=== PATIENT | male | born 1950 | race Caucasian/White ===

== ENCOUNTER → 2017-07-07 10:28 | Outpatient (CLI) | payer MEDICARE, MEDICAID, SELFPAY ==
--- NOTE | 2017-07-07 | XR_ITS ---
XR foot RT min 3V, XR foot LT min 3V Ordering Physician: Monserrat Mendiola DPM Patient Age: 66 years: Male HISTORY: ITS.REASON: PAIN..MASHED AND BROKE 10 YEARS AGO . HISTORY of diabetes type 2 with diabetic, neuropathy. TECHNIQUE: Right foot 3 views weightbearing Left foot 3 views weightbearing COMPARISON :Contralateral foot from today . RIGHT FOOT 3 views weightbearing Bones well mineralized. No erosive changes. Perhaps Trace degenerative changes at first MTP joint. Mild sclerosis also seen about the first tarsal-metatarsal joint with small subchondral cystic elements at the first cuneiform adjacent to this joint. Subtle but may reflect some early degenerative changes here. Prominent narrowed and sclerotic changes narrowed appearance right subtalar joint likely reflecting a pronounced degenerative changes here. Question slight loss of height along the inferior margin of the talus. The dome of talus appears intact. Is there history of old old trauma here.?. Clinical correlation required.. Mild pes planus developing I believe at the right foot more so than left. Mild soft tissue swelling right forefoot LEFT FOOT 3 views weightbearing Bones well mineralized. No erosive changes. Only Trace degenerative changes at first MTP joint. Question subtle sclerosis also seen about the first tarsal-metatarsal joint otherwise question some scant early degenerative changes here. Equivocal... There is a moderate size moderately thick plaque calcaneal spur at the left foot measuring up to 7.5-8 mm length. More adequate plantar arch in the left only. Only question scant soft tissue swelling towards left forefoot forefoot In contrast to the right lateral foot image, the left subtalar joint it appears more normal on the lateral view left foot. There may be some mild sclerosis along the superior margin of the calcaneus at the subtalar joint but the subtalar joint appears is visualized & intact on this lateral view. IMPRESSION: 1.Sclerotic markedly narrowed appearance RIGHT Subtalar Joint.. Reflecting arthritic changes here on right.. Noting history of diabetes possible neuropathic joint changes vs old trauma.. . In contrast the LEFT subtalar joint appears intact maintained on today's lateral foot view. Consider CT or MR to if require further detail right subtalar joint. 2. Suggestion Mild soft tissue swelling right foot more so than left . 3. Left plantar calcaneal spur. 4.. Mild the developing pes planus right foot
== END ==
PROVIDERS: Visit Provider Podiatrist
DX: M79.671 Pain in right foot (principal); M79.672 Pain in left foot
CPT/HCPCS: 73630

== ENCOUNTER → 2017-07-11 12:08 | Outpatient (POV) | payer MEDICARE, MEDICAID, SELFPAY | PROVIDERS: Visit Provider Podiatrist | DX: Z00.00 Encounter for general adult medical examination without abnormal findings (principal) ==

== ENCOUNTER → 2017-07-25 12:39 | Outpatient (POV) | payer MEDICARE, MEDICAID, SELFPAY | PROVIDERS: Visit Provider Podiatrist | DX: Z00.00 Encounter for general adult medical examination without abnormal findings (principal) ==

== ENCOUNTER → 2017-09-01 10:34 | Outpatient (POV) | payer MEDICARE, MEDICAID, SELFPAY | PROVIDERS: PCP Internal Medicine; Visit Provider Physician Assistant | DX: Z00.00 Encounter for general adult medical examination without abnormal findings (principal) ==

== ENCOUNTER → 2017-09-01 12:04 | Outpatient (CLI) | payer MEDICARE, MEDICAID, SELFPAY ==
--- NOTE | 2017-09-01 12:05 | XR_ITS ---
XR ankle wt bearing LT min 3V HISTORY: Ankle pain ORDERING PHYSICIAN: Monserrat Mendiola DPM PATIENT AGE: 66 years COMPARISON: None FINDINGS: Weightbearing views are performed No fracture or dislocation. No lytic or blastic change. There is normal mineralization.. The joint spaces are well-preserved. No significant degenerative/arthritic changes. No erosive changes evident. Mildly prominent calcaneal spur is noted with some fragmentation distally IMPRESSION: Calcaneal spur otherwise negative left ankle
--- NOTE | 2017-09-01 12:05 | XR_ITS ---
Right ankle: Weightbearing Ankle 3 views. HISTORY: Right ankle pain ORDERING PHYSICIAN: Monserrat Mendiola DPM PATIENT AGE: 66 years COMPARISON: None FINDINGS: No acute fracture or dislocation is evident. There are hypertrophic changes at the tip of the lateral malleolus with a well-circumscribed density at the tip the lateral malleolus and could be due to an old injury or ununited ossification center. Sclerosis once again noted involving the posterior subtalar joint. The ankle joint spaces are well-preserved. IMPRESSION: 1. Hypertrophic changes of the distal fibula. 2. 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
== END ==
PROVIDERS: Visit Provider Podiatrist
DX: M79.671 Pain in right foot (principal); M79.672 Pain in left foot; B35.1 Tinea unguium
CPT/HCPCS: 73610; 87102; 87206; 87220

== ENCOUNTER → 2018-01-05 14:42 | Outpatient (POV) | payer MEDICARE, MEDICAID, SELFPAY | PROVIDERS: Family Provider Internal Medicine; PCP Internal Medicine; Visit Provider Physician Assistant | DX: Z00.00 Encounter for general adult medical examination without abnormal findings (principal) ==

== ENCOUNTER 2019-01-12 12:49 | Observation (INO) ==
--- NOTE | 2019-01-12 13:54 | Procedure Note ---
[facility] Cardioversion Date: 01/12/19 Provider:: FLORINDA Perez Procedure Performed:: Synchronized electrical cardioversion Diagnosis:: Atrial fibrillation with a rapid ventricular response Procedure Summary:: Patient was brought to the cardiac Account Processor as an outpatient. After informed consent obtained, anesthesia was obtained using a combination of Versed and fentanyl IV. After the patient was adequately sedated, using his AICD, synchro nized cardioversion was attempted x3. Each attempt was 41 J. After each attempt patient maintained sinus rhythm for only a few seconds before reverting back to atrial fibrillation with a rapid ventricular response. After the third attempt, the procedure was aborted. Patient tolerated procedure without complications. Complications:: none Conculsion:: Unsuccessful electrical cardioversion
--- NOTE | 2019-01-12 14:12 | Consult Report ---
History of Present Illness Consult date: 01/12/19 Requesting physician: Andrea Bagley Consult reason: atrial fibrillation Chief complaint: A. fib with RVR Additional Medical History:: 1. Cardiac catheterization, 04/2017, normal coronary arteries with LVEF 45%, LVEDP 20 mm Hg and endothelial dysfunction 2. Severe COPD 3. Continue tobacco use 4. Obstructive sleep apnea 5. Hypertension A. Echocardiogram, 08/09/2016, normal LV dimension with LVEF of 40-45%. Mild concentric LVH. Unable to completely assess for regional wall motion as some segments are not well seen. Left atrial enlargement of 5.3 cm, mild MR, mild TR with mild aortic valve calcification with no regurgitation. Normal right atrial size. No significant pericardial effusion 6. Hyperlipidemia 7. History of paroxysmal atrial fibrillation with history of anticoagulation therapy stopped in 04/2015 at patient request A. Anticoagulation therapy restarted, 06/2016, for possible TIA B. Anticoagulation therapy stopped, 12/2016, for hematuria with referral to urology for evaluation. Patient did have a kidney stone with subsequent treatment and reinstitution of Eliquis therapy C. History of Tikosyn therapy, 2016 8. Mild carotid artery stenosis, 2016 9. History of anemia felt secondary to bleeding hemorrhoids on chronic anticoagulation therapy A. Status post hemorrhoidectomy with no recurrent bleeding/anemia, 2016 10. [employer] AICD implanted since at least 2012 with improved cardiomyopathy 11. Diabetes mellitus type 2 12. Hypothyroidism, on replacement therapy History of present illness: 68-year-old white male longtime patient of Dr. Butts was sent by his PCP in [place], [place] for further treatment of his symptomatic atrial fibrillation with a rapid ventricular response. Patient has a history of sinus rhythm on Tikosyn therapy along with Eliquis for anticoagulation. He was brought to the cardiac Assistant Professor Of German at [facility] with subsequent unsuccessful attempts at cardioversion without complication. Subsequently admitted for further treatment. [facility] History Medical History: Reports:: Atrial Fibrillation, Chronic Obstructive Pulmonary Disease (COPD), Diabetes Mellitus Type 2, Gastroesophageal Reflux Disease(GERD), Internal Pacemaker, Kidney Stones Denies:: Arrhythmia, Asthma, Cancer, Congestive Heart Failure, Coronary Artery Disease, Cerebrovascular Accident, Hyperlipidemia, Hypertension, Myocardial Infarction, Renal Disease, Renal Insufficiency *Have you ever received a pneumonia vaccine?: Yes *Have you received a flu vaccine this season?: No Other Medical History: Reports: Arthritis, Cataracts, Hypothyroidism, Sinus Problems Other Surgeries: Yes: Pacemaker, Sinus Surgery - *Social History Smoking Status: Current every day smoker Tobacco Type: cigarettes # Packs/Day (cigarettes): 1 Alcohol Intake: current Alcohol Intake Frequency:: 0-2 drinks per day Substance Use Type: denies use *Occupational Status:: retired *Travel in the last 8 weeks: Inside the [place] Family Hx:: Cancer, Diabetes, Heart Attack, Stroke, Hypertension Meds Home Medications Medication Instructions Recorded Confirmed Type fluticasone propionate 50 1 spray INTRANASAL DAILY 30 Days 07/07/17 01/12/19 History mcg/actuation nasal #16 spray,suspension escitalopram 20 mg tablet 10 mg PO DAILY tab 07/31/17 01/12/19 History metformin 500 mg tablet 500 mg PO DAILY tab 07/31/17 01/12/19 History albuterol sulfate 2.5 mg/3 mL 1.25 mg INHALATION QID #180 ml 04/02/18 01/12/19 Rx (0.083 %) solution for nebulization topiramate 50 mg tablet 50 mg PO BID 08/10/18 01/12/19 History Apixaban [Eliquis] 5 mg PO BID 01/12/19 01/12/19 History Dofetilide 125 mcg PO Q12H 01/12/19 01/12/19 History Dofetilide 250 mcg PO Q12H 01/12/19 01/12/19 History Gabapentin [Gabapentin 100mg Cap] 200 mg PO HS 01/12/19 01/12/19 History Levothyroxine Sodium [Synthroid 100 mcg PO DAILY 01/12/19 01/12/19 History 100mcg (0.1mg) tablet] dilTIAZem HCl [Diltiazem 240mg 240 mg PO BID 01/12/19 01/12/19 History 24Hr ER Cap] Allergies Allergy/AdvReac Type Severity Reaction Status Date / Time No Known Allergies Allergy Verified 08/10/18 14:23 Review of Systems - *Cardiovascular Reports shortness of breath with activity, Reports fast heart rate, Denies chest pain - *Respiratory Reports shortness of breath with activity - *Gastrointestinal Denies abdominal pain, Denies loose stools, Denies nausea, Denies vomiting - *Genitourinary Denies blood in urine - *Musculoskeletal Reports back pain, Denies joint pain - *Neurologic Denies headache(s), Denies fainting Exam Vital signs and Labs for Last 24 Hours: Pulse Resp BP Pulse Ox 131 H 16 109/84 L 95 01/12/19 13:45 01/12/19 13:45 01/12/19 13:45 01/12/19 13:45 I & O for Last 24 hours: Intake & Output 01/10/19 01/11/19 01/12/19 01/13/19 11:59 11:59 11:59 11:59 Weight 228 lb - *Routine HEENT Exam Head: Present: normocephalic Eye: Present: EOMI, PERRL ENT: Present: mucous membranes moist - *Routine Neck Exam Present: supple. Absent: JVD, carotid bruit - *Routine Respiratory Exam Present: CTA bilaterally. Absent: accessory muscle use, rales, rhonchi, wheezes - *Routine Cardiovascular Exam Present: tachycardia, irregularly irregular. Absent: murmur, gallop, rubs - *Routine Abdominal Exam Present: soft. Absent: tenderness, distended, guarding - *Routine Extremities Exam Absent: edema, calf tenderness - *Routine Neurological Exam Present: alert, oriented X3, moving all extremities Assessment and Plan (1) Paroxysmal atrial fibrillation with RVR Current visit: Yes Status: Acute Category: Medical Code(s): I48.0 - Paroxysmal atrial fibrillation (2) Visit for monitoring Tikosyn therapy Current visit: Yes Status: Acute Category: Medical Code(s): Z51.81 - Encounter for therapeutic drug level monitoring; Z79.899 - Other moth exterminator (current) drug therapy (3) Automatic implantable cardioverter-defibrillator in situ Current visit: No Status: Chronic Category: Medical Code(s): Z95.810 - Presence of automatic (implantable) cardiac defibrillator (4) COPD (chronic obstructive pulmonary disease) Current visit: No Status: Chronic Qualifiers: COPD type: emphysema Emphysema type: other Qualified Code(s): J43.8 - Other emphysema Category: Medical Code(s): J44.9 - Chronic obstructive pulmonary disease, unspecified (5) Carotid artery stenosis Current visit: No Status: Chronic Qualifiers: Laterality: bilateral Qualified Code(s): I65.23 - Occlusion and stenosis of bilateral carotid arteries Category: Medical Code(s): I65.29 - Occlusion and stenosis of unspecified carotid artery (6) HHD (hypertensive heart disease) Current visit: No Status: Chronic Qualifiers: Heart failure presence: with heart failure Heart failure type: systolic Heart failure chronicity: chronic Qualified Code(s): I11.0 - Hypertensive heart disease with heart failure; I50.22 - Chronic systolic (congestive) heart failure Category: Medical Code(s): I11.9 - Hypertensive heart disease without heart failure (7) HLD (hyperlipidemia) Current visit: No Status: Chronic Qualifiers: Hyperlipidemia type: other hyperlipidemia Qualified Code(s): E78.49 - Other hyperlipidemia; E78.4 - Other hyperlipidemia Category: Medical Code(s): E78.5 - Hyperlipidemia, unspecified (8) CANDI on CPAP Current visit: No Status: Chronic Category: Medical Code(s): G47.33 - Obstructive sleep apnea (adult) (pediatric); Z99.89 - Dependence on other enabling machines and devices (9) Obesity Current visit: No Status: Chronic Qualifiers: Obesity type: due to excess calories Obesity classification: adult class 2 (BMI 35 - 39.9) Serious obesity comorbidity presence: without serious comorbidity Body mass index: BMI 38.0-38.9 Qualified Code(s): E66.09 - Other obesity due to excess calories; Z68.38 - Body mass index (BMI) 38.0-38.9, adult Category: Medical Code(s): E66.9 - Obesity, unspecified (10) Tobacco use Current visit: No Status: Chronic Category: Medical Code(s): Z72.0 - Tobacco use - Assessment and plan all Dx Assessment and Plan for all problems:: 1. Continue Eliquis 5 mg BID 2. Patient is to be admitted for increase in Tikosyn therapy to 500 mg every 12 hours 3. We will continue diltiazem but switch to IV to allow more titration control. Will start with 15 mg bolus and 15 mg/h drip. 4. Keep n.p.o. after midnight with plans to repeat cardioversion in the a.m. 5. EKG in a.m.
--- NOTE | 2019-01-12 15:32 | Pharmacy Consult Notes ---
[facility] Pharmacy VTE Monitoring - Patient Demographics Admission date: 01/12/19 Report Date: 01/12/19 Time: 15:31 Allergies/Adverse Reactions: Patient Allergies No Known Allergies Allergy (Verified 08/10/18 14:23) Height: 1.7 m Weight: 100.045 kg Patient Problems: Current Active Problems Paroxysmal atrial fibrillation with RVR (Acute) Visit for monitoring Tikosyn therapy (Acute) - Prophylaxis VTE Prophylaxis Ordered?: Yes Types of VTE Prophylaxis: Pharmacological Pharmacologic Type: Other (ELIQUIS)
[2019-01-12 16:02] LABS: Anion Gap 13.9 mEq/L (5-15); Calcium 8.2 mg/dL (8.5-10.1)
--- NOTE | 2019-01-12 20:39 | History & Physical Report ---
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 fib with RVR Additional Medical History:: 1. Cardiac catheterization, 04/2017, normal coronary arteries with LVEF 45%, LVEDP 20 mm Hg and endothelial dysfunction 2. Severe COPD 3. Continue tobacco use 4. Obstructive sleep apnea 5. Hypertension A. Echocardiogram, 08/09/2016, normal LV dimension with LVEF of 40-45%. Mild concentric LVH. Unable to completely assess for regional wall motion as some segments are not well seen. Left atrial enlargement of 5.3 cm, mild MR, mild TR with mild aortic valve calcification with no regurgitation. Normal right atrial size. No significant pericardial effusion 6. Hyperlipidemia 7. History of paroxysmal atrial fibrillation with history of anticoagulation therapy stopped in 04/2015 at patient request A. Anticoagulation therapy restarted, 06/2016, for possible TIA B. Anticoagulation therapy stopped, 12/2016, for hematuria with referral to urology for evaluation. Patient did have a kidney stone with subsequent treatment and reinstitution of Eliquis therapy C. History of Tikosyn therapy, 2016 8. Mild carotid artery stenosis, 2016 9. History of anemia felt secondary to bleeding hemorrhoids on chronic anticoagulation therapy A. Status post hemorrhoidectomy with no recurrent bleeding/anemia, 2016 10. [employer] AICD implanted since at least 2012 with improved cardiomyopathy 11. Diabetes mellitus type 2 12. Hypothyroidism, on replacement therapy History of present illness: 68-year-old white male longtime patient of Dr. Butts was sent by his PCP in [place], [place] for further treatment of his symptomatic atrial fibrillation with a rapid ventricular response. Patient has a history of sinus rhythm on Tikosyn therapy along with Eliquis for anticoagulation. He was brought to the cardiac Project Specialist at [facility] with subsequent unsuccessful attempts at cardioversion without complication. Subsequently admitted for further treatment. [facility] History I have reviewed the patient's past medical history: Yes Medical History: Reports:: Arrhythmia, Atrial Fibrillation, Congestive Heart Failure, Chronic Obstructive Pulmonary Disease (COPD), Coronary Artery Disease, Diabetes Mellitus Type 2, Gastroesophageal Reflux Disease(GERD), Hyperlipidemia, Hypertension, Internal Pacemaker, Kidney Stones, Myocardial Infarction Denies:: Asthma, Cancer, Cerebrovascular Accident, Renal Disease, Renal Insufficiency *Have you ever received a pneumonia vaccine?: Yes *Have you received a flu vaccine this season?: No Other Medical History: Reports: Arthritis, Cataracts, Hypothyroidism, Sinus Problems Other Surgeries: Yes: Cholecystectomy, Pacemaker, Sinus Surgery - *Social History Educational Level: Attended High School Smoking Status: Current every day smoker Tobacco Type: cigarettes # Packs/Day (cigarettes): 1 Alcohol Intake: current Alcohol Intake Frequency:: a few times a week Substance Use Type: denies use *Occupational Status:: retired Housing: house Household Members: none *Travel in the last 8 weeks: None - Psychiatric History Expresses thoughts of harming self/others: None Suicide Plan Description: No Plan Family Hx:: Cancer, Diabetes, Heart Attack, Stroke, Hypertension Review of Systems - Review of Systems Review of systems:: pertinent systems reviewed and negative unless documented be low - Constitutional Denies fever(s) - Eyes Denies change in vision - ENT Denies dizziness - *Cardiovascular Reports chest pain at rest, Reports shortness of breath, Reports irregular heart rhythm - *Respiratory Reports cough, Reports wheezing - *Gastrointestinal Denies heartburn - *Genitourinary Denies blood in urine - *Musculoskeletal Denies joint pain - Integumentary/Breasts Denies rash - *Neurologic Denies headache(s), Denies fainting - Psychiatric Reports anxiety Meds Home Medications Medication Instructions Recorded Confirmed Type fluticasone propionate 50 1 spray INTRANASAL DAILY 30 Days 07/07/17 01/12/19 History mcg/actuation nasal #16 spray,suspension escitalopram 20 mg tablet 10 mg PO DAILY tab 07/31/17 01/12/19 History metformin 500 mg tablet 500 mg PO DAILY tab 07/31/17 01/12/19 History albuterol sulfate 2.5 mg/3 mL 1.25 mg INHALATION QID #180 ml 04/02/18 01/12/19 Rx (0.083 %) solution for nebulization topiramate 50 mg tablet 50 mg PO BID 08/10/18 01/12/19 History Apixaban [Eliquis] 5 mg PO BID 01/12/19 01/12/19 History Dofetilide 125 mcg PO Q12H 01/12/19 01/12/19 History Dofetilide 250 mcg PO Q12H 01/12/19 01/12/19 History Gabapentin [Gabapentin 100mg Cap] 200 mg PO HS 01/12/19 01/12/19 History Levothyroxine Sodium [Synthroid 100 mcg PO DAILY 01/12/19 01/12/19 History 100mcg (0.1mg) tablet] dilTIAZem HCl [Diltiazem 240mg 240 mg PO BID 01/12/19 01/12/19 History 24Hr ER Cap] Allergies Allergy/AdvReac Type Severity Reaction Status Date / Time No Known Allergies Allergy Verified 08/10/18 14:23 Exam Vital signs and Labs for Last 24 Hours: Temp Pulse Resp BP Pulse Ox 97.9 F 81 20 101/77 L 93 L 01/12/19 20:22 01/12/19 19:54 01/12/19 18:00 01/12/19 18:00 01/12/19 18:00 Laboratory Results - last 24 hr 01/12/19 15:36: Sodium 139, Potassium 3.9, Chloride 106, Carbon Dioxide 23, Anion Gap 13.9, BUN 15, Creatinine 1.32 H, Estimated Creat Clear 74, Estimated GFR 54 L, Est GFR ( Amer) 65, Glucose 131 H, Calcium 8.2 L, Magnesium 2.1 I & O for Last 24 hours: Intake & Output 01/10/19 01/11/19 01/12/19 01/13/19 11:59 11:59 11:59 11:59 Intake Total 395 / 395 Output Total 100 / 100 Balance 295 / 295 Weight 220 lb 9 oz - Constitutional no acute distress, obese - *Routine HEENT Exam Head: Present: normocephalic Eye: Present: EOMI, PERRL ENT: Present: mucous membranes dry - *Routine Neck Exam Present: supple - *Routine Respiratory Exam Present: prolonged expiratory phase, wheezes - *Routine Cardiovascular Exam Present: murmur, irregular rhythm - *Routine Abdominal Exam Present: soft - *Routine Extremities Exam Absent: calf tenderness - *Routine Skin Exam Present: intact - *Routine Neurological Exam Present: alert, oriented X3, CN II-XII intact. Absent: motor deficit - Routine Psychiatric Exam Present: anxious Assessment and Plan (1) Paroxysmal atrial fibrillation with RVR Current visit: Yes Status: Acute Category: Medical Code(s): I48.0 - Paroxysmal atrial fibrillation (2) Visit for monitoring Tikosyn therapy Current visit: Yes Status: Acute Category: Medical Code(s): Z51.81 - Encounter for therapeutic drug level monitoring; Z79.899 - Other extermination inspector (current) drug therapy (3) Automatic implantable cardioverter-defibrillator in situ Current visit: No Status: Chronic Category: Medical Code(s): Z95.810 - Presence of automatic (implantable) cardiac defibrillator (4) COPD (chronic obstructive pulmonary disease) Current visit: No Status: Chronic Qualifiers: COPD type: emphysema Emphysema type: other Qualified Code(s): J43.8 - Other emphysema Category: Medical Code(s): J44.9 - Chronic obstructive pulmonary disease, unspecified (5) Carotid artery stenosis Current visit: No Status: Chronic Qualifiers: Laterality: bilateral Qualified Code(s): I65.23 - Occlusion and stenosis of bilateral carotid arteries Category: Medical Code(s): I65.29 - Occlusion and stenosis of unspecified carotid artery (6) HHD (hypertensive heart disease) Current visit: No Status: Chronic Qualifiers: Heart failure presence: with heart failure Heart failure type: systolic Heart failure chronicity: chronic Qualified Code(s): I11.0 - Hypertensive heart disease with heart failure; I50.22 - Chronic systolic (congestive) heart failure Category: Medical Code(s): I11.9 - Hypertensive heart disease without heart failure (7) HLD (hyperlipidemia) Current visit: No Status: Chronic Qualifiers: Hyperlipidemia type: other hyperlipidemia Qualified Code(s): E78.49 - Other hyperlipidemia; E78.4 - Other hyperlipidemia Category: Medical Code(s): E78.5 - Hyperlipidemia, unspecified (8) CANDI on CPAP Current visit: No Status: Chronic Category: Medical Code(s): G47.33 - Obstructive sleep apnea (adult) (pediatric); Z99.89 - Dependence on other enabling machines and devices (9) Obesity Current visit: No Status: Chronic Qualifiers: Obesity type: due to excess calories Obesity classification: adult class 2 (BMI 35 - 39.9) Serious obesity comorbidity presence: without serious comorbidity Body mass index: BMI 38.0-38.9 Qualified Code(s): E66.09 - Other obesity due to excess calories; Z68.38 - Body mass index (BMI) 38.0-38.9, adult Category: Medical Code(s): E66.9 - Obesity, unspecified (10) Tobacco use Current visit: No Status: Chronic Category: Medical Code(s): Z72.0 - Tobacco use
[2019-01-13 06:28] LABS: Basophils % 0.4 % (0.1-2.0); Eosinophils % 0.2 % (0.1-12.0); Hematocrit 37.5 % (42.0-52.0); Lymphocytes # 0.7 K/mm3 (0.7-4.5); Mean Corpuscular HGB Conc 29.2 g/dL (31.8-35.4); Mean Corpuscular Volume 82.3 fl (80-94); Mean Platelet Volume 8.3 fl (7.4-10.4); Monocytes # 0.1 K/mm3 (0.1-1.0); Monocytes % 1.8 % (1.7-9.3); Neutrophils # 3.9 K/mm3 (1.8-7.8); Neutrophils % 83.6 % (37.0-80.0); Platelet Count 218 K/mm3 (142-424); Red Blood Count 4.56 M/mm3 (4.60-6.20); Red Cell Distribution Width 17.9 % (11.5-17.5); White Blood Count 4.7 K/mm3 (4.8-10.8)
[2019-01-13 06:48] LABS: Anion Gap 12.3 mEq/L (5-15); Calcium 8.4 mg/dL (8.5-10.1)
--- NOTE | 2019-01-13 09:35 | Progress Note ---
Subjective Date: 01/13/19 Time: 09:21 Principal diagnosis: A. fib with RVR Interval history: 68-year-old white male in bed in no acute distress. States he feels better and is able to take a full deep breath now. Patient did convert from atrial fibrillation to sinus rhythm overnight after being given IV digoxin therapy. Patient was on a diltiazem drip overnight and only needed 120 mg (5 mg/h) for both blood pressure and heart rate control. Patient did not receive the increased dose of Tikosyn nor did he receive his routine dose of Tikosyn due to communication error. Exam Vital signs and Labs for Last 24 Hours: Temp Pulse Resp BP Pulse Ox 98.2 F 75 18 103/62 L 94 L 01/13/19 04:00 01/13/19 08:00 01/13/19 08:00 01/13/19 08:00 01/13/19 08:00 Laboratory Results - last 24 hr 01/12/19 15:36: Sodium 139, Potassium 3.9, Chloride 106, Carbon Dioxide 23, Anion Gap 13.9, BUN 15, Creatinine 1.32 H, Estimated Creat Clear 74, Estimated GFR 54 L, Est GFR ( Amer) 65, Glucose 131 H, Calcium 8.2 L, Magnesium 2.1 01/13/19 05:20: WBC 4.7 L, RBC 4.56 L, Hgb 11.0 L, Hct 37.5 L, MCV 82.3, MCH 24.1 L, MCHC 29.2 L, RDW 17.9 H, Plt Count 218, MPV 8.3, Neut % (Auto) 83.6 H, Lymph % (Auto) 14.0, [place] % (Auto) 1.8, Eos % (Auto) 0.2, Baso % (Auto) 0.4, Neut # (Auto) 3.9, Lymph # (Auto) 0.7, [place] # (Auto) 0.1, Eos # (Auto) 0.0, Baso # (Auto) 0.0 01/13/19 05:20: Sodium 137, Potassium 4.3, Chloride 104, Carbon Dioxide 25, Anion Gap 12.3, BUN 16, Creatinine 1.18, Estimated Creat Clear 81, Estimated GFR 61, Est GFR ( Amer) 74, Glucose 196 H D, Calcium 8.4 L, Magnesium 1.9 I & O for Last 24 hours: Intake & Output 01/10/19 01/11/19 01/12/19 01/13/19 11:59 11:59 11:59 11:59 Intake Total 635 / 635 Output Total 1475 / 1475 Balance -840 / -840 Weight 217 lb 5 oz - *Routine HEENT Exam Head: Present: normocephalic Eye: Present: EOMI, PERRL ENT: Present: mucous membranes moist - *Routine Respiratory Exam Present: CTA bilaterally. Absent: accessory muscle use, rales, rhonchi, wheezes - *Routine Cardiovascular Exam Present: RRR. Absent: murmur, gallop, rubs - *Routine Extremities Exam Absent: edema, calf tenderness - *Routine Neurological Exam Present: alert, oriented X3, moving all extremities Progress Note: A&P (1) Paroxysmal atrial fibrillation with RVR Status: Acute Current Visit: Yes (2) Visit for monitoring Tikosyn therapy Status: Acute Current Visit: Yes (3) Automatic implantable cardioverter-defibrillator in situ Status: Chronic Current Visit: No (4) COPD (chronic obstructive pulmonary disease) Status: Chronic Current Visit: No (5) Carotid artery stenosis Status: Chronic Current Visit: No (6) HHD (hypertensive heart disease) Status: Chronic Current Visit: No (7) HLD (hyperlipidemia) Status: Chronic Current Visit: No (8) CANDI on CPAP Status: Chronic Current Visit: No (9) Obesity Status: Chronic Current Visit: No (10) Tobacco use Status: Chronic Current Visit: No Assessment and Plan for All Diagnoses:: 1. Will discharge home on his current Tikosyn dose of 375 mg twice daily. 2. We will add digoxin 0.125 mg daily 3. We will give diltiazem CD 240 mg this a.m. and then discontinue drip within 30 minutes. He will resume his home dose of diltiazem CD 240 mg twice daily. 4. Stressed compliance with medication. Home medications to include Tikosyn 375 mg twice daily, diltiazem CD 240 mg twice daily, Eliquis 5 mg twice daily and digoxin 0.125 mg daily in addition to his other noncardiac medications. Follow-up in our clinic in 1 week.
--- NOTE | 2019-01-13 10:12 | Discharge Summary ---
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 fib with RVR Additional Medical History:: 1. Cardiac catheterization, 04/2017, normal coronary arteries with LVEF 45%, LVEDP 20 mm Hg and endothelial dysfunction 2. Severe COPD 3. Continue tobacco use 4. Obstructive sleep apnea 5. Hypertension A. Echocardiogram, 08/09/2016, normal LV dimension with LVEF of 40-45%. Mild concentric LVH. Unable to completely assess for regional wall motion as some segments are not well seen. Left atrial enlargement of 5.3 cm, mild MR, mild TR with mild aortic valve calcification with no regurgitation. Normal right atrial size. No significant pericardial effusion 6. Hyperlipidemia 7. History of paroxysmal atrial fibrillation with history of anticoagulation therapy stopped in 04/2015 at patient request A. Anticoagulation therapy restarted, 06/2016, for possible TIA B. Anticoagulation therapy stopped, 12/2016, for hematuria with referral to urology for evaluation. Patient did have a kidney stone with subsequent treatment and reinstitution of Eliquis therapy C. History of Tikosyn therapy, 2016 8. Mild carotid artery stenosis, 2016 9. History of anemia felt secondary to bleeding hemorrhoids on chronic anticoagulation therapy A. Status post hemorrhoidectomy with no recurrent bleeding/anemia, 2016 10. [employer] AICD implanted since at least 2012 with improved cardiomyopathy 11. Diabetes mellitus type 2 12. Hypothyroidism, on replacement therapy History of present illness: 68-year-old white male longtime patient of Dr. Butts was sent by his PCP in [place], [place] for further treatment of his symptomatic atrial fibrillation with a rapid ventricular response. Patient has a history of sinus rhythm on Tikosyn therapy along with Eliquis for anticoagulation. He was brought to the cardiac [employer] at [facility] [place] [facility] with subsequent unsuccessful attempts at cardioversion without complication. Subsequently admitted for further treatment. Hospital Course Hospital Course: pt did well overnight with stabilized hr and in nsr - he also improved with breathing - this am he felt better - 68-year-old white male in bed in no acute distress. States he feels better and is able to take a full deep breath now. Patient did convert from atrial fibrillation to sinus rhythm overnight after being given IV digoxin therapy. Patient was on a diltiazem drip overnight and only needed 120 mg (5 mg/h) for both blood pressure and heart rate control. Patient did not receive the increased dose of Tikosyn nor did he receive his routine dose of Tikosyn due to communication error. Will discharge home on his current Tikosyn dose of 375 mg twice daily. 2. We will add digoxin 0.125 mg daily 3. We will give diltiazem CD 240 mg this a.m. and then discontinue drip within 30 minutes. He will resume his home dose of diltiazem CD 240 mg twice daily. 4. Stressed compliance with medication. Home medications to include Tikosyn 375 mg twice daily, diltiazem CD 240 mg twice daily, Eliquis 5 mg twice daily and digoxin 0.125 mg daily in addition to his other noncardiac medications. Follow-up in our clinic in 1 week. Objective Vital signs: Temp Pulse Resp BP Pulse Ox 98.2 F 75 18 103/62 L 94 L 01/13/19 04:00 01/13/19 09:57 01/13/19 08:00 01/13/19 08:00 01/13/19 08:00 no acute distress, obese - *Routine HEENT Exam Head: Present: normocephalic Eye: Present: EOMI, PERRL ENT: Present: mucous membranes dry - *Routine Neck Exam Absent: JVD - *Routine Respiratory Exam Present: distant breath sounds - *Routine Cardiovascular Exam Present: RRR, murmur, S4 - *Routine Abdominal Exam Present: soft - *Routine Extremities Exam Absent: calf tenderness - *Routine Skin Exam Present: intact - *Routine Neurological Exam Present: alert, oriented X3, CN II-XII intact - Routine Psychiatric Exam Present: normal affect Results Labs on day of discharge: Labs from last 24 hours 01/13/19 01/13/19 01/12/19 05:20 05:20 15:36 WBC 4.7 L RBC 4.56 L Hgb 11.0 L Hct 37.5 L MCV 82.3 MCH 24.1 L MCHC 29.2 L RDW 17.9 H Plt Count 218 MPV 8.3 Neut % (Auto) 83.6 H Lymph % (Auto) 14.0 [place] % (Auto) 1.8 Eos % (Auto) 0.2 Baso % (Auto) 0.4 Neut # (Auto) 3.9 Lymph # (Auto) 0.7 [place] # (Auto) 0.1 Eos # (Auto) 0.0 Baso # (Auto) 0.0 Sodium 137 139 Potassium 4.3 3.9 Chloride 104 106 Carbon Dioxide 25 23 Anion Gap 12.3 13.9 BUN 16 15 Creatinine 1.18 1.32 H Estimated Creat Clear 81 74 Estimated GFR 61 54 L Est GFR ( Amer) 74 65 Glucose 196 H D 131 H Calcium 8.4 L 8.2 L Magnesium 1.9 2.1 DS: Diagnosis - Discharge Diagnosis (1) Paroxysmal atrial fibrillation with RVR Status: Acute (2) Visit for monitoring Tikosyn therapy Status: Acute (3) Automatic implantable cardioverter-defibrillator in situ Status: Chronic (4) COPD (chronic obstructive pulmonary disease) Status: Chronic (5) Carotid artery stenosis Status: Chronic (6) HHD (hypertensive heart disease) Status: Chronic (7) HLD (hyperlipidemia) Status: Chronic (8) CANDI on CPAP Status: Chronic (9) Obesity Status: Chronic (10) Tobacco use Status: Chronic (11) Anemia Status: Acute (12) Diabetes 1.5, managed as type 2 Status: Acute (13) Hypothyroidism (acquired) Status: Acute Discharge Plan - Patient Discharge Instructions ACTIVITY: Continue current activity DIET: continue same diet Patient Instructions: DI for Cardioversion, DI for Atrial Fibrillation, DI for Shortness of Breath - Follow up Plan Disposition: Home, Self-Custodial Medications: Home Medications Medication Instructions Recorded Confirmed Type fluticasone propionate 50 1 spray INTRANASAL DAILY 30 Days 07/07/17 01/12/19 History mcg/actuation nasal #16 spray,suspension escitalopram 20 mg tablet 10 mg PO DAILY tab 07/31/17 01/12/19 History metformin 500 mg tablet 500 mg PO DAILY tab 07/31/17 01/12/19 History albuterol sulfate 2.5 mg/3 mL 1.25 mg INHALATION QID #180 ml 04/02/18 01/12/19 Rx (0.083 %) solution for nebulization topiramate 50 mg tablet 50 mg PO BID 08/10/18 01/12/19 History Apixaban [Eliquis] 5 mg PO BID 01/12/19 01/12/19 History Dofetilide 125 mcg PO Q12H 01/12/19 01/12/19 History Dofetilide 250 mcg PO Q12H 01/12/19 01/12/19 History Gabapentin [Gabapentin 100mg Cap] 200 mg PO HS 01/12/19 01/12/19 History Levothyroxine Sodium [Synthroid 100 mcg PO DAILY 01/12/19 01/12/19 History 100mcg (0.1mg) tablet] dilTIAZem HCl [Diltiazem 240mg 240 mg PO BID 01/12/19 01/12/19 History 24Hr ER Cap] Prescriptions/Medication Reconciliation: New Digoxin [Digoxin 0.125mg Tablet] 125 mcg PO DAILY #0 tablet dilTIAZem HCl [Cardizem ER 240mg Capsule] 240 mg PO DAILY cap.er.24h Apixaban [Eliquis 5mg Tablet] 5 mg PO BID tablet Continued fluticasone propionate 50 mcg/actuation nasal spray,suspension 1 spray INTRANASAL DAILY 30 Days #16 topiramate 50 mg tablet 50 mg PO BID metformin 500 mg tablet 500 mg PO DAILY tab escitalopram 20 mg tablet 10 mg PO DAILY tab albuterol sulfate 2.5 mg/3 mL (0.083 %) solution for nebulization 1.25 mg INHALATION QID #180 ml Gabapentin [Gabapentin 100mg Cap] 200 mg PO HS Dofetilide 250 mcg PO Q12H Apixaban [Eliquis] 5 mg PO BID dilTIAZem HCl [Diltiazem 240mg 24Hr ER Cap] 240 mg PO BID Dofetilide 125 mcg PO Q12H Levothyroxine Sodium [Synthroid 100mcg (0.1mg) tablet] 100 mcg PO DAILY - Problem Reconciliation Problems Reviewed?: Yes
--- NOTE | 2019-01-13 13:45 | Electrocardiograph Report ---
APPROVED REPORT Exam: Resting ECG HR:70 bpm ECG Measurements Heart Rate 70 AXES QRSd 182 QRS 260 QT 538 T88 QTc 581 <Conclusion> Electronic ventricular pacemaker Electronically signed by : Jaime Gupta, 01/13/2019 13:44:16
== END 2019-01-13 11:10 | disposition home or self-care (01) ==
LOC: CATHLAB 12:49 → 2ND 12:49
PROVIDERS: ADMIT Emergency Medicine; ATTEND Emergency Medicine
CPT/HCPCS: 36415; 71010; 71045; 80048; 83735; 85025; 92960; 93005; 94640; 94761; 99152; G0378